=== PATIENT | female | born 1985 | race Caucasian/White ===

== ENCOUNTER 2017-03-13 18:55 | Emergency (ER) | payer OTHER ==
[~2017-03-13] VITALS: Ht 160 cm; Wt 111.4 kg
[~2017-03-13 18:55] MED LIST: BCPILLS PO
[2017-03-13 18:58] VITALS: TEMP 36.8; Ht 160 cm; Wt 111.4 kg
[2017-03-13] MEDS ORDERED: GI COCKTAIL PO STA (20:44)
[2017-03-13] MEDS ORDERED: CLX/20 (20:52)
--- NOTE | 2017-03-13 22:02 | DIAGNOSTIC IMAGING REPORT ---
SOFT TISSUES NECK 2 VIEWS CLINICAL HISTORY: Globus sensation. FINDINGS: AP and lateral views of the neck are correlated with radiograph the cervical spine dated 03/27/2007. The soft tissues of the neck are normal in appearance. The airway is widely patent. The prevertebral/retropharyngeal soft tissues are within normal limits. The epiglottis is normal. No radiodense foreign body is seen. Partially imaged apical lung parenchyma is clear. The visualized bony structures appear intact. IMPRESSION: Unremarkable radiographic assessment of the soft tissues of the neck. Electronically signed by: Cal Kelly M.D. 03/13/2017 10:01 PM Dictated Date/Time: 03/13/2017 9:59 PM
[2017-03-13] MEDS ORDERED: EPP3/2 IM (22:14)
--- NOTE | 2017-03-13 22:21 | EMERGENCY ROOM VISIT NOTE ---
History First contact with patient: 20:27 Chief Complaint: THROAT PAIN/INJURY Stated Complaint: PAIN IN NECK AND THROAT History of Present Illness The patient is a 31 year old female who presents to the Emergency Room with complaints of a foreign body sensation in the throat for 1 day. The patient states that she has had a sharp feeling in the right side of her throat when swallowing all day today. She states it feels like there is something sharp stuck in the throat when she swallows. She denies any history of similar symptoms. She denies difficulty swallowing or breathing. Review of Systems A complete 10 point review of systems was reviewed with the patient with pertinent positives and negatives as per history of present illness. All else were negative. Past Medical/Surgical History Medical Problems: (1) Asthma Surgical Problems: (1) H/O arthroscopic knee surgery Family History Cancer Diabetes mellitus Gallbladder disease Heart disease Hypertension Kidney disease or stones Lung disease Seizures Social History Smoking Status: Current Every Day Smoker Alcohol Use: none Drug Use: none Marital Status: in relationship Occupation Status: employed Current/Historical Medications Scheduled Control Pills ( Control Pills), 1 TAB PO DAILY Scheduled PRN Epinephrine (Epipen), 0.3 MG IM UD PRN for Shortness of Breath Miscellaneous Medications Citalopram (Citalopram Hydrobromide) Physical Exam Vital Signs Date Time Temp Pulse Resp B/P (MAP) Pulse Ox O2 Delivery O2 Flow Rate FiO2 03/13/17 22:32 80 18 120/89 99 03/13/17 20:49 80 18 120/89 99 Room Air 03/13/17 20:46 99 Room Air 03/13/17 18:58 36.8 90 18 165/97 99 Room Air Physical Exam VITALS: Vitals are noted on the nurse's note and reviewed by myself. Vital signs stable. GENERAL: This is a 31-year-old female, in no acute distress, nondiaphoretic, well-developed well-nourished. EARS: External auditory canals clear, tympanic membranes pearly martini without erythema or effusion bilaterally. EYES: Pupils equal round and reactive to light and accommodation. MOUTH: Mucous membranes moist. Tonsils are not enlarged. Pharynx without erythema or exudate. Uvula midline. Airway patent. NECK: Supple without nuchal rigidity. No lymphadenopathy. No thyromegaly. HEART: Regular rate and rhythm without murmurs gallops or rubs. LUNGS: Clear to auscultation bilaterally without wheezes, rales or rhonchi. NEURO: Patient was alert and oriented to person place and time. Medical Decision & Procedures Medical Decision The patient was evaluated as above. She presents with globus sensation for the past one day. There are no pertinent physical exam findings. Lateral neck x- rays were performed and show no acute findings. The patient was given a GI cocktail, but refused, stating that she "does not like to take medications." She was instructed to follow-up with her primary care provider if her symptoms persist. She is not having any difficulty swallowing or eating. She verbalized understanding of my assessment and treatment plan and was discharged home in good condition. Medication Reconcilliation Current Medication List: was personally reviewed by me Blood Pressure Screening Patient's blood pressure: Normal blood pressure Impression Primary Impression: Globus sensation Departure Information Dispostion Home / Self-Care Condition GOOD Referrals Randolph Ferguson M.D.([facility]) (PCP) Patient Instructions My [facility] Additional Instructions For pain control, you can use the following [id number] medicines (if >12 yo): - Regular strength (325mg/tab) Tylenol (acetaminophen) 2 tabs every 4-6 hours as needed. Do not exceed 12 tablets in a 24 hour period. Avoid taking more than 4 grams (4000 mg) of Tylenol per day. This includes any other sources of acetaminophen you may take on a regular basis. - Regular strength (200 mg/tab) Advil (ibuprofen) 1-2 tabs every 4-6 hours as needed. Do not exceed a dose of 3200 mg per day. Follow-up with your primary care provider if your symptoms persist.
[2017-03-13 22:32] VITALS: BP 120/89; PULSE 80; O2SAT 99
== END 2017-03-13 22:33 | disposition home or self-care (01) ==
LOC: C.EDB 18:56 → C.EDD 22:33
DX: R09.89 Other specified symptoms and signs involving the circulatory and respiratory systems (principal); J45.909 Unspecified asthma, uncomplicated; Z80.9 Family history of malignant neoplasm, unspecified; Z83.3 Family history of diabetes mellitus; Z82.49 Family history of ischemic heart disease and other diseases of the circulatory system; Z84.1 Family history of disorders of kidney and ureter; Z82.0 Family history of epilepsy and other diseases of the nervous system; F17.210 Nicotine dependence, cigarettes, uncomplicated; Z79.3 Long term (current) use of hormonal contraceptives

== ENCOUNTER 2017-09-20 18:50 | Emergency (ER) | payer OTHER ==
[~2017-09-20] VITALS: Ht 160 cm; Wt 115.0 kg
[2017-09-20 19:08] VITALS: TEMP 37; Ht 160 cm; Wt 115.0 kg
[2017-09-20] MEDS ORDERED: CLX/20 PO (20:52)
[2017-09-20] MEDS ORDERED: SODIUM CHLORIDE 0.9% 1000ML 1,000 ML IV STA (21:18)
[2017-09-20] MEDS ORDERED: ONDANSETRON INJ 2 MG/ML 2 ML VIAL IV STA (21:18)
[2017-09-20] MEDS ORDERED: OPTIRAY 320 IV PRN (21:30)
[2017-09-20 21:34] LABS: BASO % 0.2 %; BASO ABS # 0.03 K/uL (0-0.2); EOS % 1.3 %; EOS ABS # 0.16 K/uL (0-0.5); HEMATOCRIT 42.7 % (37-47); HEMOGLOBIN 14.8 g/dL (12.0-16.0); IG# 0.04 K/uL (0.00-0.02); LYMPH % 32.8 %; LYMPH ABS # 4.08 K/uL (1.2-3.4); MEAN CELL VOLUME 90.3 fL (80-100); MEAN CORPUSCULAR HEMOGLOBIN 31.3 pg (25-34); MEAN CORPUSCULAR HGB CONC 34.7 g/dl (32-36); MEAN PLATELET VOLUME 9.8 fL (7.4-10.4); MONO % 5.4 %; MONO ABS # 0.67 K/uL (0.11-0.59); NEUT ABS # 7.46 K/uL (1.4-6.5); PLATELET COUNT 308 K/uL (130-400); RED CELL DISTRIBUTION WIDTH CV 12.7 % (11.5-14.5); RED CELL DISTRIBUTION WIDTH SD 41.9 fL (36.4-46.3); WHITE BLOOD COUNT 12.44 K/uL (4.8-10.8)
[2017-09-20 21:50] LABS: ISTAT CREATININE 0.8 mg/dl (0.6-1.3); ISTAT IONIZED CALCIUM 1.21 mmol/l (1.12-1.32); ISTAT POTASSIUM 3.7 mEq/L (3.3-5.0)
[2017-09-20 21:53] LABS: ALBUMIN 3.7 gm/dl (3.4-5.0); ALT/SGPT 26 U/L (12-78); BLOOD UREA NITROGEN 10 mg/dl (7-18); CALCIUM 8.9 mg/dl (8.5-10.1); CARBON DIOXIDE 29 mmol/L (21-32); CREATININE 0.79 mg/dl (0.60-1.20); GLUCOSE 93 mg/dl (70-99); LIPASE 95 U/L (73-393); POTASSIUM 3.6 mmol/L (3.5-5.1); SODIUM 138 mmol/L (136-145)
[2017-09-20 21:56] LABS: ALKALINE PHOSPHATASE 73 U/L (45-117); AST/SGOT 15 U/L (15-37); TOTAL PROTEIN 7.9 gm/dl (6.4-8.2)
[2017-09-20] MEDS ORDERED: EPP3/2 IM (22:14)
--- NOTE | 2017-09-20 22:24 | DIAGNOSTIC IMAGING REPORT ---
ABDOMEN AND PELVIS CT WITH IV CONTRAST CT DOSE: 1480.12 mGy.cm HISTORY: Right lower quadrant abdominal pain. TECHNIQUE: Multiaxial CT images of the abdomen and pelvis were performed following the use of intravenous contrast. A dose lowering technique was utilized adhering to the principles of ALARA. COMPARISON STUDY: None. FINDINGS: The lung bases are clear. No pneumoperitoneum. No pneumatosis. No fractures within the visualized osseous structures. The liver, gallbladder, pancreas, spleen, and adrenal glands are unremarkable. Normal kidneys. No hydronephrosis. Duplicated left renal collecting system. The duplicated ureters likely join distally prior to the ureterovesical junction. Normal bladder. The uterus and ovaries are within normal limits. No retroperitoneal lymphadenopathy. Colonic diverticulosis. No bowel wall thickening or obstruction. Normal appendix. IMPRESSION: 1. No bowel wall thickening or obstruction. 2. Normal appendix. 3. Colonic diverticulosis. Electronically signed by: Eriberto Woods M.D. 09/20/2017 10:22 PM Dictated Date/Time: 09/20/2017 10:16 PM
[2017-09-20] MEDS ORDERED: OMEP20CA9 PO (22:44)
[2017-09-20 22:49] VITALS: BP 141/93; PULSE 93; O2SAT 99
--- NOTE | 2017-09-20 23:45 | EMERGENCY ROOM VISIT NOTE ---
History Report prepared by Ann-Marie: Dalila Hermosillo Under the Supervision of: Kartik HubbardO. First contact with patient: 21:04 Chief Complaint: ABDOMINAL PAIN Stated Complaint: PAIN IN RT SIDE Nursing Triage Summary: RLQ pain since this AM, worsened through day History of Present Illness The patient is a 32 year old female who presents to the Emergency Room with complaints of worsening RLQ abdominal pain since this morning. She describes her pain as stabbing and rates it as a 6/10 in severity. She notes some vaginal bleeding this morning that she describes as "spotting." Her pain is worsened with movement and not affected by eating or drinking. The patient has had similar pain intermittently for the past 6 months but she states that typically the pain is lower. She associates this pain with changes to her OCP and control regimen. Usually the pain is present in the morning and goes away after she goes to the bathroom. She states that today's pain is different because it is located slightly higher in her RLQ and it has been persistent throughout the day. Pt denies headache, change in vision, fevers, chest pain, shortness of breath, nausea, vomiting, diarrhea, pain with urination, and melena. Her LNMP was 5 weeks ago which is normal for her. Pt denies any previous abdominal surgeries. Source of History: patient Onset: this morning Position: abdomen (RLQ) Symptom Intensity: 6/10 Quality: stabbing Timing: worsening Modifying Factors (Worsening): movement Associated Symptoms: No fevers, No headache, No chest pain, No SOB, No nausea, No vomiting, No melena, No diarrhea, No urinary symptoms Note: Pt notes vaginal bleeding. Review of Systems See HPI for pertinent positives & negatives. A total of 10 systems reviewed and were otherwise negative. Past Medical & Surgical Medical Problems: (1) Asthma Surgical Problems: (1) H/O arthroscopic knee surgery Family History Cancer Diabetes mellitus Gallbladder disease Heart disease Hypertension Kidney disease or stones Lung disease Seizures Social History Smoking Status: Current Every Day Smoker Alcohol Use: none Drug Use: none Marital Status: in relationship Occupation Status: employed Current/Historical Medications Scheduled Control Pills ( Control Pills), 1 TAB PO DAILY Citalopram (Citalopram Hydrobromide), 20 MG PO DAILY Scheduled PRN Epinephrine (Epipen), 0.3 MG IM UD PRN for Allergic Reaction Omeprazole (Prilosec), 20 MG PO DAILY PRN for Acid Reflux Allergies Coded Allergies: BEE STING (Verified Allergy, Mild, 08/04/14) Iron (Verified Allergy, Unknown, 08/04/14) Physical Exam Vital Signs Date Time Temp Pulse Resp B/P (MAP) Pulse Ox O2 Delivery O2 Flow Rate FiO2 09/20/17 22:49 93 16 141/93 99 09/20/17 21:32 93 16 141/93 99 Room Air 09/20/17 19:08 37.0 93 18 151/92 98 Room Air Physical Exam GENERAL: Sitting up in bed, alert, well appearing, morbidly obses, no distress, non-toxic EYE EXAM: normal conjunctiva. OROPHARYNX: no exudate, no erythema, lips, buccal mucosa, and tongue normal and mucous membranes are moist NECK: supple, no nuchal rigidity, no adenopathy, non-tender LUNGS: Clear to auscultation. Normal chest wall mechanics HEART: no murmurs, S1 normal and S2 normal ABDOMEN: abdomen soft, tender to palpation in the RLQ, normo-active bowel sounds , no masses, no rebound or guarding. BACK: Back is symmetrical on inspection and there is no deformity, no midline tenderness, no CVA tenderness. SKIN: no rashes and no bruising UPPER EXTREMITIES: upper extremities are grossly normal. LOWER EXTREMITIES: No pitting edema. NEURO EXAM: Normal sensorium, cranial nerves II-XII grossly intact, normal speech, no gross weakness of arms, no gross weakness of legs. Medical Decision & Procedures ER Provider Diagnostic Interpretation: Radiology results as stated below per my review and the radiologist's interpretation: ABDOMEN AND PELVIS CT WITH IV CONTRAST CT DOSE: 1480.12 mGy.cm HISTORY: Right lower quadrant abdominal pain. TECHNIQUE: Multiaxial CT images of the abdomen and pelvis were performed following the use of intravenous contrast. A dose lowering technique was utilized adhering to the principles of ALARA. COMPARISON STUDY: None. FINDINGS: The lung bases are clear. No pneumoperitoneum. No pneumatosis. No fractures within the visualized osseous structures. The liver, gallbladder, pancreas, spleen, and adrenal glands are unremarkable. Normal kidneys. No hydronephrosis. Duplicated left renal collecting system. The duplicated ureters likely join distally prior to the ureterovesical junction. Normal bladder. The uterus and ovaries are within normal limits. No retroperitoneal lymphadenopathy. Colonic diverticulosis. No bowel wall thickening or obstruction. Normal appendix. IMPRESSION: 1. No bowel wall thickening or obstruction. 2. Normal appendix. 3. Colonic diverticulosis. Electronically signed by: Eriberto Woods M.D. 09/20/2017 10:22 PM Dictated Date/Time: 09/20/2017 10:16 PM Laboratory Results 09/20/17 21:20 Red Blood Count 4.73, Mean Corpuscular Volume 90.3, Mean Corpuscular Hemoglobin 31.3, Mean Corpuscular Hemoglobin Concent 34.7, Mean Platelet Volume 9.8, Neutrophils (%) (Auto) 60.0, Lymphocytes (%) (Auto) 32.8, Monocytes (%) (Auto) 5.4, Eosinophils (%) (Auto) 1.3, Basophils (%) (Auto) 0.2, Neutrophils # (Auto) 7.46, Lymphocytes # (Auto) 4.08, Monocytes # (Auto) 0.67, Eosinophils # (Auto) 0.16, Basophils # (Auto) 0.03 09/20/17 21:20 Test 09/20/17 21:20 09/20/17 21:26 White Blood Count 12.44 K/uL (4.8-10.8) Red Blood Count 4.73 M/uL (4.2-5.4) Hemoglobin 14.8 g/dL (12.0-16.0) Hematocrit 42.7 % (37-47) Mean Corpuscular Volume 90.3 fL (80-100) Mean Corpuscular Hemoglobin 31.3 pg (25-34) Mean Corpuscular Hemoglobin Concent 34.7 g/dl (32-36) Platelet Count 308 K/uL (130-400) Mean Platelet Volume 9.8 fL (7.4-10.4) Neutrophils (%) (Auto) 60.0 % Lymphocytes (%) (Auto) 32.8 % Monocytes (%) (Auto) 5.4 % Eosinophils (%) (Auto) 1.3 % Basophils (%) (Auto) 0.2 % Neutrophils # (Auto) 7.46 K/uL (1.4-6.5) Lymphocytes # (Auto) 4.08 K/uL (1.2-3.4) Monocytes # (Auto) 0.67 K/uL (0.11-0.59) Eosinophils # (Auto) 0.16 K/uL (0-0.5) Basophils # (Auto) 0.03 K/uL (0-0.2) RDW Standard Deviation 41.9 fL (36.4-46.3) RDW Coefficient of Variation 12.7 % (11.5-14.5) Immature Granulocyte % (Auto) 0.3 % Immature Granulocyte # (Auto) 0.04 K/uL (0.00-0.02) Urine Color YELLOW Urine Appearance CLEAR (CLEAR) Urine pH 6.5 (4.5-7.5) Urine Specific [place]ever 1.019 (1.000-1.030) Urine Protein NEG (NEG) Urine Glucose (UA) NEG (NEG) Urine Ketones NEG (NEG) Urine Occult Blood 2+ (NEG) Urine Nitrite NEG (NEG) Urine Bilirubin NEG (NEG) Urine Urobilinogen NEG (NEG) Urine Leukocyte Esterase MODERATE (NEG) Urine WBC (Auto) 10-30 /hpf (0-5) Urine RBC (Auto) 5-10 /hpf (0-4) Urine Hyaline Casts (Auto) 1-5 /lpf (0-5) Urine Epithelial Cells (Auto) 20-30 /lpf (0-5) Urine Bacteria (Auto) NEG (NEG) Urine Crystals TALC (NONE PRSENT) Urine Test NEG (NEG) Est Creatinine Clear Calc Drug Dose 127.3 ml/min Estimated GFR () 116.4 Estimated GFR (Non- 100.5 BUN/Creatinine Ratio 12.9 (10-20) Calcium Level 8.9 mg/dl (8.5-10.1) Total Bilirubin 0.2 mg/dl (0.2-1) Direct Bilirubin < 0.1 mg/dl (0-0.2) Aspartate Amino Transf (AST/SGOT) 15 U/L (15-37) Alanine Aminotransferase (ALT/SGPT) 26 U/L (12-78) Alkaline Phosphatase 73 U/L (45-117) Total Protein 7.9 gm/dl (6.4-8.2) Albumin 3.7 gm/dl (3.4-5.0) Lipase 95 U/L (73-393) Bedside Hemoglobin 15.6 g/dl (12.0-16.0) Bedside Hematocrit 46 % (37-47) Bedside Sodium 140 mEq/L (135-144) Bedside Potassium 3.7 mEq/L (3.3-5.0) Bedside Chloride 102 mEq/L (101-112) Bedside Total CO2 29 mEq/l (24-31) Anion Gap 13.0 mmol/L (16-25) Bedside Blood Urea Nitrogen 10 mg/dl (7-18) Bedside Creatinine 0.8 mg/dl (0.6-1.3) Bedside Glucose (other) 94 mg/dl (70-99) Bedside Ionized Calcium (Velvet) 1.21 mmol/l (1.12-1.32) Laboratory results per my review. Medications Administered Medications (Trade) Dose Ordered Sig/Paula Route Start Time Stop Time Status Last Admin Dose Admin Sodium Chloride 1,000 ml @ 999 mls/hr Q1H1M STAT IV 09/20/17 21:18 09/20/17 22:18 DC 09/20/17 21:32 999 MLS/HR Ondansetron HCl (Zofran Inj) 4 mg NOW STAT IV 09/20/17 21:18 09/20/17 21:19 DC 09/20/17 21:32 4 MG ED Course ED COURSE: Vital signs were reviewed and showed normal vitals. The patients medical record was reviewed The above diagnostic studies were performed and reviewed. ED treatments and interventions as stated above. 2103: The patient was evaluated in room C9. A complete history and physical examination was performed. 2117: Zofran 4 mg IV, NSS 1000 ml @ 999 mls/hr IV 2: Upon reevaluation, the patient is feeling better and resting comfortably. I discussed my findings with the patient and she understands and agrees with the treatment plan. Based on the patients age, coexisting illnesses, exam and lab findings the decision to treat as an outpatient was made. The patient remained stable while under my care. The patient appeared well at the time of discharge. Medical Decision Differential diagnoses includes but is not limited to gastritis, peptic ulcer disease, GERD, gallbladder disease, pancreatitis, small bowel obstruction, acute coronary syndrome, pericarditis, ischemic bowel, irritable bowel disease, irritable bowel syndrome, appendicitis, diverticulitis, malignancy, hernia, urinary tract infection, torsion, /ectopic , perforation, trauma, infectious. Patient is a 32-year-old female who presents to ER for right lower quadrant abdominal pain that started this morning. She notes that she has had a very similar pain off and on for the past several months. This is slightly different. She has a mild leukocytosis of 12,000. BMP all LFTs, bilirubin and lipase is unremarkable. No signs peritonitis on exam. UA with moderate leukocytes and 10-30 white cells but 20-30 epithelial cells. This is contaminated. Had a long conversation with the patient and she has had UTIs in the past and notes this does not feel anything like her previous UTIs. was negative. Will not treat UA at this time. Will send for culture. Patient was updated bedside and discharged to follow-up with PCP for repeat abdominal check with right lower quadrant abdominal pain and negative CT suggesting appendicitis or any kind of ovarian mass to suggest torsion. Discussed with Pt concerning signs and symptoms to watch out for. Pt was instructed to follow up with their PCP and discussed with the patient their option to return to the ED at anytime for persistent or worsening symptoms. The appropriate anticipatory guidance and out-patient management, including indications for return to the emergency department, were explained at length to the patient and understood. Medication Reconcilliation Current Medication List: was personally reviewed by me Blood Pressure Screening Patient's blood pressure: Normal blood pressure Impression Primary Impression: Abdominal pain Scribe Attestation The scribe's documentation has been prepared under my direction and personally reviewed by me in its entirety. I confirm that the note above accurately reflects all work, treatment, procedures, and medical decision making performed by me. Departure Information Dispostion Home / Self-Care Referrals Randolph Ferguson M.D.([facility]) (PCP) Forms HOME CARE DOCUMENTATION FORM, IMPORTANT VISIT INFORMATION Patient Instructions Abdominal Pain - [facility], My [facility] Additional Instructions Please follow up with your primary care doctor with in the next 24 hours. Any worsening of your symptoms, please return to the ED immediately. This includes any fevers greater than 100.4, worsening pain, chest pain, shortness breath, persistent nausea, vomiting, unable to eat or drink, or any other concerning signs or symptoms from your standpoint. Problem Qualifiers Primary Impression: Abdominal pain Abdominal location: unspecified location Qualified Codes: R10.9 - Unspecified abdominal pain
== END 2017-09-20 22:49 | disposition home or self-care (01) ==
LOC: C.EDB 18:52 → C.EDC 22:49
DX: R10.9 Unspecified abdominal pain (principal); J45.909 Unspecified asthma, uncomplicated; Z83.3 Family history of diabetes mellitus; Z82.49 Family history of ischemic heart disease and other diseases of the circulatory system; Z82.0 Family history of epilepsy and other diseases of the nervous system; F17.200 Nicotine dependence, unspecified, uncomplicated